=== PATIENT | male | born 1960 | race Caucasian/White ===

== ENCOUNTER 2018-12-25 18:43 | Inpatient (IN) | payer MEDICARE, OTHER ==
[2018-12-25 22:00] LABS: ADD MAN DIFF? NO
[2018-12-25] MEDS: NICARDipine HCL 30 MG CAPSULE PO (22:00)
[2018-12-25 22:05] LABS: WHITE BLOOD COUNT 5.1 10^3/ul (4.8-10.8)
[2018-12-25 22:05] LABS: BASOPHILS % 0.4 % (0.0-2.0); EOSINOPHILS # 0.5 10^3/ul (0.0-0.5); EOSINOPHILS % 9.3 % (0.0-7.0); HEMATOCRIT 37.3 % (42.0-52.0); HEMOGLOBIN 12.1 g/dl (14.0-18.0); LYMPHOCYTES # 0.8 10^3/ul (0.8-2.9); LYMPHOCYTES % 16.1 % (15.0-51.0); MEAN CORPUSCULAR HEMOGLOBIN 29.9 pg (29.0-33.0); MEAN CORPUSCULAR HGB CONC 32.4 g/dl (32.0-37.0); MEAN CORPUSCULAR VOLUME 92.1 fl (82.0-101.0); MONOCYTE # 0.4 10^3/ul (0.3-0.9); MONOCYTES % 8.4 % (0.0-11.0); NEUTROPHIL # 3.4 10^3/ul (1.6-7.5); NEUTROPHILS % 65.6 % (39.0-77.0); PLATELET COUNT 125 10^3/UL (140-415); POSITIVE DIFF @See below; RED BLOOD COUNT 4.05 10^6/ul (4.70-6.10)
[2018-12-25 22:26] LABS: ANION GAP 12 (5-13); BLOOD UREA NITROGEN 57 mg/dl (7-20); CALCIUM 8.8 mg/dl (8.4-10.2); CARBON DIOXIDE 23 mmol/L (21-31); CHLORIDE 102 mmol/L (97-110); CREATININE 8.68 mg/dl (0.61-1.24); Estimated GFR 6 mL/min (>60); GLUCOSE 110 mg/dl (70-220); SODIUM 137 mmol/L (135-144)
[2018-12-25 22:37] LABS: POTASSIUM 6.3 mmol/L (3.5-5.1)
[2018-12-25] MEDS: ALBUTEROL 0.5% (NEB) 2.5 MG/0.5 ML AMP INH (23:12)
[2018-12-25] MEDS: DEXTROSE 50% 50 ML SYRINGE IV ×2 (23:48)
[2018-12-25] MEDS: INSULIN REGULAR, HUMAN 100 UNIT/1 ML 3ML VIAL IVP (23:49)
[2018-12-26] MEDS: SODIUM POLYSTYRENE 15 GM KIT (POWDER + SORBITOL) PO (00:50)
[2018-12-26] MEDS: ATROPINE 1% 5 ML OPH BOTH EYES ×2 (08:12→20:09)
[2018-12-26] MEDS: MINOXIDIL 2.5 MG TAB PO ×2 (08:12→20:08)
[2018-12-26] MEDS: FAMOTIDINE 20 MG TAB PO ×2 (08:13→20:08)
[2018-12-26] MEDS: LOSARTAN 50 MG TAB PO (08:13)
[2018-12-26] MEDS: NIFEdipine (XL) 90 MG TAB PO (08:19)
[2018-12-26] MEDS: ISOSORBIDE MONONITRATE(SR)60 MG TAB PO (10:55)
[2018-12-26 11:18] LABS: ADD MAN DIFF? NO
[2018-12-26 11:30] LABS: BASOPHILS % 0.5 % (0.0-2.0); EOSINOPHILS # 0.4 10^3/ul (0.0-0.5); HEMATOCRIT 35.1 % (42.0-52.0); HEMOGLOBIN 11.2 g/dl (14.0-18.0); LYMPHOCYTES # 0.7 10^3/ul (0.8-2.9); LYMPHOCYTES % 16.3 % (15.0-51.0); MEAN CORPUSCULAR HEMOGLOBIN 29.5 pg (29.0-33.0); MEAN CORPUSCULAR HGB CONC 31.9 g/dl (32.0-37.0); MEAN CORPUSCULAR VOLUME 92.4 fl (82.0-101.0); MEAN PLATELET VOLUME 11.1 fl (7.4-10.4); MONOCYTE # 0.4 10^3/ul (0.3-0.9); MONOCYTES % 10.5 % (0.0-11.0); NEUTROPHIL # 2.6 10^3/ul (1.6-7.5); NEUTROPHILS % 63.7 % (39.0-77.0); PLATELET COUNT 110 10^3/UL (140-415); RED CELL DISTRIBUTION WIDTH 14.1 % (11.5-14.5)
[2018-12-26] MEDS ORDERED: VANCOMYCIN IV PER PHARMACY XX (11:30)
[2018-12-26 12:06] LABS: ANION GAP 12 (5-13); BLOOD UREA NITROGEN 67 mg/dl (7-20); CALCIUM 8.6 mg/dl (8.4-10.2); CARBON DIOXIDE 23 mmol/L (21-31); CHLORIDE 104 mmol/L (97-110); CREATININE 9.72 mg/dl (0.61-1.24); Estimated GFR 6 mL/min (>60); GLUCOSE 141 mg/dl (70-220); POTASSIUM 5.8 mmol/L (3.5-5.1); SODIUM 139 mmol/L (135-144)
[2018-12-26] MEDS: BARIUM SULF 2% 450 ML BTL (BERRY SMOOTHIE) PO (12:25)
[2018-12-26] MEDS: VANCOMYCIN HCL 1.5 GM in SOD CHLORIDE 0.9% 250 ML IVPB (12:25)
[2018-12-26] MEDS ORDERED: ALBUMIN HUMAN 25% 100 ML IV (12:30)
[2018-12-26] MEDS ORDERED: SODIUM CHLORIDE 0.9% 1L BAG IV (12:30)
[2018-12-26 15:19] LABS: HEPATITIS B SURFACE ANTIGEN NEGATIVE (NEGATIVE)
[2018-12-26] MEDS: HEPARIN 1000 UNITS/ML 10 ML INJ CATHETER (18:25)
[2018-12-26] MEDS: TOBRAMYCIN 0.3% 5 ML OPH LEFT EYE ×2 (18:26→23:00)
[2018-12-26] MEDS: PIPER-TAZO 2.25 GM (PMX) 50 ML IVPB ×2 (18:26→21:07)
[2018-12-26] MEDS: NIFEdipine (XL) 60 MG TAB PO (20:08)
[2018-12-26] MEDS ORDERED: NIFEdipine (XL) 90 MG TAB PO (21:00)
[2018-12-27] MEDS: PIPER-TAZO 2.25 GM (PMX) 50 ML IVPB ×3 (05:23→22:07)
[2018-12-27] MEDS: TOBRAMYCIN 0.3% 5 ML OPH LEFT EYE ×4 (05:24→23:45)
[2018-12-27 06:29] LABS: WHITE BLOOD COUNT 2.9 10^3/ul (4.8-10.8)
[2018-12-27 06:29] LABS: ABNORMAL IP MESSAGE 1; HEMATOCRIT 36.3 % (42.0-52.0); HEMOGLOBIN 11.9 g/dl (14.0-18.0); MEAN CORPUSCULAR HGB CONC 32.8 g/dl (32.0-37.0); MEAN CORPUSCULAR VOLUME 91.4 fl (82.0-101.0); MEAN PLATELET VOLUME 11.7 fl (7.4-10.4); PLATELET COUNT 88 10^3/UL (140-415); POSITIVE DIFF @See below; RED BLOOD COUNT 3.97 10^6/ul (4.70-6.10); RED CELL DISTRIBUTION WIDTH 13.5 % (11.5-14.5)
[2018-12-27 06:32] LABS: ADD MAN DIFF? YES
[2018-12-27 06:49] LABS: ALANINE AMINOTRANSFERASE 7 IU/L (13-69); ALBUMIN 4.2 g/dl (3.3-4.9); ALBUMIN/GLOBULIN RATIO 1.27; ALKALINE PHOSPHATASE 54 IU/L (42-121); ANION GAP 12 (5-13); ASPARTATE AMINO TRANSFERASE 10 IU/L (15-46); BLOOD UREA NITROGEN 48 mg/dl (7-20); CALCIUM 8.5 mg/dl (8.4-10.2); CARBON DIOXIDE 28 mmol/L (21-31); CHLORIDE 98 mmol/L (97-110); CREATININE 8.61 mg/dl (0.61-1.24); Estimated GFR 6 mL/min (>60); GLUCOSE 94 mg/dl (70-220); POTASSIUM 5.1 mmol/L (3.5-5.1); SODIUM 138 mmol/L (135-144); TOTAL PROTEIN 7.5 g/dl (6.1-8.1)
[2018-12-27 07:04] LABS: FREE T4 (FREE THYROXINE) 1.41 ng/dl (0.64-1.79)
[2018-12-27 07:08] LABS: CHOL/HDL RATIO 2.2 RATIO; CHOLESTEROL 140 mg/dl (100-200); HDL CHOLESTEROL 62 mg/dl (28-71); LDL CHOLESTEROL,CALCULATED 68 mg/dl; TRIGLYCERIDES 48 mg/dl (0-149)
[2018-12-27 07:08] LABS: MAGNESIUM 2.5 mg/dl (1.7-2.5)
[2018-12-27 07:44] LABS: ANISOCYTOSIS 1+ (0-0); BAND NEUTROPHILS % (M) 1 % (0-4); BASOPHILS % (M) 1 % (0-2); EOSINOPHILS % (M) 18 % (0-7); LYMPHOCYTES #M 0.6 10^3/ul (0.8-2.9); LYMPHOCYTES % (M) 22 % (15-51); MONOCYTE #M 0.1 10^3/ul (0.3-0.9); MONOCYTES % (M) 4 % (0-11); PLASMAC%(M) 1 % (0); PLATELET ESTIMATE DECREASED; PLATELET MORPHOLOGY COMMENT @See below; SEG NEUT #M 1.5 10^3/ul (1.6-7.5); SEGMENTED NEUTROPHILS (M) % 53 % (39-77); SMUDGE%M 42 % (0-0)
[2018-12-27] MEDS: ATROPINE 1% 5 ML OPH BOTH EYES ×2 (07:55→21:15)
[2018-12-27] MEDS: LOSARTAN 50 MG TAB PO (07:56)
[2018-12-27] MEDS: ISOSORBIDE MONONITRATE(SR)60 MG TAB PO (07:56)
[2018-12-27] MEDS: NIFEdipine (XL) 60 MG TAB PO ×2 (07:56→21:16)
[2018-12-27] MEDS: MINOXIDIL 2.5 MG TAB PO ×2 (07:58→21:19)
[2018-12-27 08:08] LABS: CARCINOEMBRYONIC ANTIGEN 2.5 ng/ml (0.0-5.0)
[2018-12-27 11:12] LABS: INR 1.05; PROTIME 13.8 Sec (11.9-14.9); PT RATIO 1.1
[2018-12-27 12:08] LABS: PLATELET COUNT 123 10^3/UL (140-415)
[2018-12-27 12:25] LABS: INR 1.05; PROTIME 13.8 Sec (11.9-14.9); PT RATIO 1.1; THROMBIN TIME 15.4 SEC (13.8-19.1)
[2018-12-27 12:26] LABS: PARTIAL THROMBOPLASTIN TIME 40.6 Sec (23.0-35.0)
[2018-12-27] MEDS: LIDOCAINE 1% (MDV) 20 ML INJ (14:12)
[2018-12-27] MEDS: LIDOCAINE 2% (SDV) 5 ML INJ (14:16)
[2018-12-27] MEDS: FAMOTIDINE 20 MG TAB PO (21:19)
[2018-12-27] MEDS: HEPARIN 1000 UNITS/ML 10 ML INJ CATHETER (22:02)
[2018-12-27] MEDS: ACETAMINOPHEN 325 MG TAB PO (23:42)
[2018-12-28] MEDS: PIPER-TAZO 2.25 GM (PMX) 50 ML IVPB ×3 (05:01→21:22)
[2018-12-28] MEDS: TOBRAMYCIN 0.3% 5 ML OPH LEFT EYE ×3 (05:02→17:30)
[2018-12-28 06:44] LABS: VANCOMYCIN,RANDOM 10.5 ug/ml
[2018-12-28 08:11] LABS: HIV 1&2 ANTIBODY NEGATIVE (NEGATIVE)
[2018-12-28] MEDS: NIFEdipine (XL) 60 MG TAB PO ×2 (08:33→20:52)
[2018-12-28] MEDS: MINOXIDIL 2.5 MG TAB PO ×2 (08:34→20:50)
[2018-12-28] MEDS: LOSARTAN 50 MG TAB PO (08:34)
[2018-12-28] MEDS: ISOSORBIDE MONONITRATE(SR)60 MG TAB PO (08:34)
[2018-12-28] MEDS: ATROPINE 1% 5 ML OPH BOTH EYES ×2 (08:35→20:53)
[2018-12-28] MEDS: ACETAMINOPHEN 325 MG TAB PO (10:26)
[2018-12-28] MEDS ORDERED: GLUCAGON 1 MG INJ IM (10:30)
[2018-12-28] MEDS ORDERED: GLUCOSE GEL 15 GRAM TUBE PO ×2 (10:30)
[2018-12-28] MEDS ORDERED: DEXTROSE 50% 50 ML SYRINGE IV ×2 (10:30)
[2018-12-28] MEDS ORDERED: GLUCOSE GEL 15 GRAM TUBE BUCCAL (10:30)
[2018-12-28] MEDS: INSULIN ASPART [NOVOLOG] 3 ML PEN SC ×6 (11:26→21:00)
[2018-12-28 12:04] LABS: ADD MAN DIFF? NO
[2018-12-28 12:13] LABS: ABNORMAL IP MESSAGE 1; BASOPHILS % 0.2 % (0.0-2.0); EOSINOPHILS # 0.6 10^3/ul (0.0-0.5); HEMATOCRIT 36.1 % (42.0-52.0); HEMOGLOBIN 11.4 g/dl (14.0-18.0); LYMPHOCYTES # 0.6 10^3/ul (0.8-2.9); LYMPHOCYTES % 14.7 % (15.0-51.0); MEAN CORPUSCULAR HEMOGLOBIN 29.5 pg (29.0-33.0); MEAN CORPUSCULAR HGB CONC 31.6 g/dl (32.0-37.0); MEAN CORPUSCULAR VOLUME 93.3 fl (82.0-101.0); MEAN PLATELET VOLUME 10.2 fl (7.4-10.4); MONOCYTE # 0.4 10^3/ul (0.3-0.9); MONOCYTES % 9.7 % (0.0-11.0); NEUTROPHIL # 2.4 10^3/ul (1.6-7.5); NEUTROPHILS % 59.2 % (39.0-77.0); PLATELET COUNT 133 10^3/UL (140-415); POSITIVE DIFF @See below; RED BLOOD COUNT 3.87 10^6/ul (4.70-6.10); RED CELL DISTRIBUTION WIDTH 13.5 % (11.5-14.5)
[2018-12-28 12:22] LABS: HEMOGLOBIN A1C 5.6 % (0-5.9)
[2018-12-28 12:34] LABS: ANION GAP 12 (5-13); BLOOD UREA NITROGEN 36 mg/dl (7-20); CALCIUM 8.4 mg/dl (8.4-10.2); CARBON DIOXIDE 26 mmol/L (21-31); CHLORIDE 101 mmol/L (97-110); CREATININE 7.05 mg/dl (0.61-1.24); Estimated GFR 8 mL/min (>60); GLUCOSE 176 mg/dl (70-220); POTASSIUM 4.8 mmol/L (3.5-5.1); SODIUM 139 mmol/L (135-144)
[2018-12-28] MEDS: VANCOMYCIN 1 GM 250 ML IVPB (14:51)
[2018-12-28] MEDS: FAMOTIDINE 20 MG TAB PO (20:51)
[2018-12-29] MEDS: TOBRAMYCIN 0.3% 5 ML OPH LEFT EYE ×4 (00:09→18:09)
[2018-12-29] MEDS: INSULIN ASPART [NOVOLOG] 3 ML PEN SC ×6 (01:00→21:00)
[2018-12-29] MEDS: ACCU-CHEK XX (02:00)
[2018-12-29] MEDS: PIPER-TAZO 2.25 GM (PMX) 50 ML IVPB ×3 (05:35→21:37)
[2018-12-29] MEDS: ATROPINE 1% 5 ML OPH BOTH EYES ×2 (08:12→21:38)
[2018-12-29] MEDS: NIFEdipine (XL) 60 MG TAB PO ×2 (10:21→20:38)
[2018-12-29] MEDS: LOSARTAN 50 MG TAB PO (10:21)
[2018-12-29] MEDS: MINOXIDIL 2.5 MG TAB PO ×2 (10:21→20:38)
[2018-12-29] MEDS: ISOSORBIDE MONONITRATE(SR)60 MG TAB PO (10:21)
[2018-12-29 10:58] LABS: NIL 0.09 IU/mL; QUANTIFERON(R)-TB GOLD NEGATIVE (NEGATIVE)
[2018-12-29] MEDS: HEPARIN 1000 UNITS/ML 10 ML INJ CATHETER (18:06)
[2018-12-29] MEDS: FAMOTIDINE 20 MG TAB PO (20:38)
[2018-12-30] MEDS: ACCU-CHEK XX (02:00)
[2018-12-30 05:55] LABS: ADD MAN DIFF? NO
[2018-12-30 06:04] LABS: BASOPHILS % 0.7 % (0.0-2.0); EOSINOPHILS # 0.5 10^3/ul (0.0-0.5); EOSINOPHILS % 17.6 % (0.0-7.0); HEMATOCRIT 36.1 % (42.0-52.0); HEMOGLOBIN 11.7 g/dl (14.0-18.0); LYMPHOCYTES # 0.7 10^3/ul (0.8-2.9); LYMPHOCYTES % 22.5 % (15.0-51.0); MEAN CORPUSCULAR HEMOGLOBIN 29.6 pg (29.0-33.0); MEAN CORPUSCULAR HGB CONC 32.4 g/dl (32.0-37.0); MEAN CORPUSCULAR VOLUME 91.4 fl (82.0-101.0); MEAN PLATELET VOLUME 10.1 fl (7.4-10.4); MONOCYTE # 0.3 10^3/ul (0.3-0.9); MONOCYTES % 9.2 % (0.0-11.0); NEUTROPHIL # 1.5 10^3/ul (1.6-7.5); NEUTROPHILS % 49.7 % (39.0-77.0); PLATELET COUNT 119 10^3/UL (140-415); RED BLOOD COUNT 3.95 10^6/ul (4.70-6.10); RED CELL DISTRIBUTION WIDTH 13.2 % (11.5-14.5)
[2018-12-30 06:04] LABS: WHITE BLOOD COUNT 3.1 10^3/ul (4.8-10.8)
[2018-12-30] MEDS: PIPER-TAZO 2.25 GM (PMX) 50 ML IVPB ×3 (06:26→21:53)
[2018-12-30] MEDS: TOBRAMYCIN 0.3% 5 ML OPH LEFT EYE ×4 (06:26→17:41)
[2018-12-30 06:32] LABS: ANION GAP 15 (5-13); BLOOD UREA NITROGEN 42 mg/dl (7-20); CALCIUM 8.1 mg/dl (8.4-10.2); CARBON DIOXIDE 23 mmol/L (21-31); CHLORIDE 100 mmol/L (97-110); CREATININE 7.29 mg/dl (0.61-1.24); Estimated GFR 8 mL/min (>60); GLUCOSE 88 mg/dl (70-220); POTASSIUM 5.1 mmol/L (3.5-5.1); SODIUM 138 mmol/L (135-144)
[2018-12-30] MEDS: INSULIN ASPART [NOVOLOG] 3 ML PEN SC ×4 (07:48→20:17)
[2018-12-30] MEDS: ISOSORBIDE MONONITRATE(SR)60 MG TAB PO (08:16)
[2018-12-30] MEDS: ATROPINE 1% 5 ML OPH BOTH EYES ×2 (08:16→20:13)
[2018-12-30] MEDS: MINOXIDIL 2.5 MG TAB PO ×2 (08:16→20:12)
[2018-12-30] MEDS: LOSARTAN 50 MG TAB PO (08:16)
[2018-12-30] MEDS: NIFEdipine (XL) 60 MG TAB PO ×2 (08:16→20:12)
[2018-12-30] MEDS: ZOLPIDEM 5 MG TAB PO (20:11)
[2018-12-30] MEDS: FAMOTIDINE 20 MG TAB PO (20:12)
[2018-12-31] MEDS: ACCU-CHEK XX (02:00)
[2018-12-31] MEDS: INSULIN ASPART [NOVOLOG] 3 ML PEN SC ×4 (07:42→21:00)
[2018-12-31] MEDS: NIFEdipine (XL) 60 MG TAB PO ×2 (08:22→21:01)
[2018-12-31] MEDS: LOSARTAN 50 MG TAB PO (08:23)
[2018-12-31] MEDS: ISOSORBIDE MONONITRATE(SR)60 MG TAB PO (08:23)
[2018-12-31] MEDS: MINOXIDIL 2.5 MG TAB PO ×2 (08:23→21:01)
[2018-12-31] MEDS: ATROPINE 1% 5 ML OPH BOTH EYES ×2 (08:25→21:03)
[2018-12-31] MEDS: ZOLPIDEM 5 MG TAB PO (21:01)
[2018-12-31] MEDS: FAMOTIDINE 20 MG TAB PO (21:02)
[2019-01-01] MEDS: ACCU-CHEK XX (00:31)
[2019-01-01] MEDS: VANCOMYCIN HCL 250 MG/5ML POSYG PO ×5 (00:31→23:35)
[2019-01-01] MEDS: INSULIN ASPART [NOVOLOG] 3 ML PEN SC ×4 (07:52→21:32)
[2019-01-01] MEDS: ATROPINE 1% 5 ML OPH BOTH EYES ×2 (10:36→21:17)
[2019-01-01] MEDS: hydrOXYzine HCL 25 MG TAB PO (10:36)
[2019-01-01] MEDS: HEPARIN 1000 UNITS/ML 10 ML INJ CATHETER (12:20)
[2019-01-01] MEDS: ISOSORBIDE MONONITRATE(SR)60 MG TAB PO (14:17)
[2019-01-01] MEDS: LOSARTAN 50 MG TAB PO (14:17)
[2019-01-01] MEDS: NIFEdipine (XL) 60 MG TAB PO ×2 (14:18→21:20)
[2019-01-01] MEDS: MINOXIDIL 2.5 MG TAB PO ×2 (14:18→21:20)
[2019-01-01] MEDS: LABETALOL 200 MG TAB PO (21:00)
[2019-01-01] MEDS: FAMOTIDINE 20 MG TAB PO (21:17)
[2019-01-02] MEDS: ACCU-CHEK XX (02:14)
[2019-01-02] MEDS: VANCOMYCIN HCL 250 MG/5ML POSYG PO ×3 (05:44→17:22)
[2019-01-02 05:52] LABS: ADD MAN DIFF? NO
[2019-01-02 05:56] LABS: WHITE BLOOD COUNT 2.9 10^3/ul (4.8-10.8)
[2019-01-02 05:56] LABS: ABNORMAL IP MESSAGE 1; BASOPHILS % 0.3 % (0.0-2.0); EOSINOPHILS # 0.5 10^3/ul (0.0-0.5); EOSINOPHILS % 17.5 % (0.0-7.0); HEMATOCRIT 37.8 % (42.0-52.0); HEMOGLOBIN 12.7 g/dl (14.0-18.0); LYMPHOCYTES # 0.4 10^3/ul (0.8-2.9); LYMPHOCYTES % 12.7 % (15.0-51.0); MEAN CORPUSCULAR HEMOGLOBIN 29.7 pg (29.0-33.0); MEAN CORPUSCULAR HGB CONC 33.6 g/dl (32.0-37.0); MEAN CORPUSCULAR VOLUME 88.5 fl (82.0-101.0); MEAN PLATELET VOLUME 11.2 fl (7.4-10.4); MONOCYTE # 0.3 10^3/ul (0.3-0.9); MONOCYTES % 10.7 % (0.0-11.0); NEUTROPHIL # 1.7 10^3/ul (1.6-7.5); NEUTROPHILS % 58.5 % (39.0-77.0); PLATELET COUNT 117 10^3/UL (140-415); POSITIVE DIFF @See below; RED BLOOD COUNT 4.27 10^6/ul (4.70-6.10); RED CELL DISTRIBUTION WIDTH 13.1 % (11.5-14.5)
[2019-01-02 06:23] LABS: ANION GAP 18 (5-13); BLOOD UREA NITROGEN 58 mg/dl (7-20); CALCIUM 7.7 mg/dl (8.4-10.2); CARBON DIOXIDE 24 mmol/L (21-31); CHLORIDE 93 mmol/L (97-110); CREATININE 8.86 mg/dl (0.61-1.24); Estimated GFR 6 mL/min (>60); GLUCOSE 91 mg/dl (70-220); POTASSIUM 5.4 mmol/L (3.5-5.1); SODIUM 135 mmol/L (135-144)
[2019-01-02] MEDS: INSULIN ASPART [NOVOLOG] 3 ML PEN SC ×4 (08:00→20:24)
[2019-01-02] MEDS: MINOXIDIL 2.5 MG TAB PO ×2 (08:52→20:13)
[2019-01-02] MEDS: ISOSORBIDE MONONITRATE(SR)60 MG TAB PO (08:52)
[2019-01-02] MEDS: NIFEdipine (XL) 60 MG TAB PO ×2 (08:52→20:13)
[2019-01-02] MEDS: LOSARTAN 50 MG TAB PO (08:53)
[2019-01-02] MEDS: ATROPINE 1% 5 ML OPH BOTH EYES ×2 (08:53→20:14)
[2019-01-02] MEDS: LABETALOL 200 MG TAB PO ×3 (08:53→23:07)
[2019-01-02] MEDS: FAMOTIDINE 20 MG TAB PO (20:13)
[2019-01-02] MEDS: NA POLYST SULFON 15 GM/60 ML BTL PO (20:35)
[2019-01-02] MEDS ORDERED: SODIUM POLYSTYRENE 15 GM KIT (POWDER + SORBITOL) PO (21:00)
[2019-01-03] MEDS: ACCU-CHEK XX (01:59)
[2019-01-03 06:24] LABS: ADD MAN DIFF? NO
[2019-01-03 06:25] LABS: BASOPHILS % 0.3 % (0.0-2.0); EOSINOPHILS # 0.5 10^3/ul (0.0-0.5); EOSINOPHILS % 13.4 % (0.0-7.0); HEMATOCRIT 33.1 % (42.0-52.0); LYMPHOCYTES # 0.9 10^3/ul (0.8-2.9); LYMPHOCYTES % 23.7 % (15.0-51.0); MEAN CORPUSCULAR HGB CONC 33.2 g/dl (32.0-37.0); MEAN CORPUSCULAR VOLUME 87.3 fl (82.0-101.0); MEAN PLATELET VOLUME 10.6 fl (7.4-10.4); MONOCYTE # 0.4 10^3/ul (0.3-0.9); MONOCYTES % 10.4 % (0.0-11.0); NEUTROPHIL # 2.1 10^3/ul (1.6-7.5); NEUTROPHILS % 52.2 % (39.0-77.0); PLATELET COUNT 149 10^3/UL (140-415); RED BLOOD COUNT 3.79 10^6/ul (4.70-6.10); RED CELL DISTRIBUTION WIDTH 13.4 % (11.5-14.5)
[2019-01-03 07:14] LABS: ANION GAP 19 (5-13); BLOOD UREA NITROGEN 85 mg/dl (7-20); CALCIUM 6.8 mg/dl (8.4-10.2); CARBON DIOXIDE 20 mmol/L (21-31); CHLORIDE 95 mmol/L (97-110); CREATININE 11.12 mg/dl (0.61-1.24); Estimated GFR 5 mL/min (>60); GLUCOSE 99 mg/dl (70-220); SODIUM 134 mmol/L (135-144)
[2019-01-03] MEDS: INSULIN ASPART [NOVOLOG] 3 ML PEN SC ×4 (08:00→20:08)
[2019-01-03] MEDS: HEPARIN 1000 UNITS/ML 10 ML INJ CATHETER (11:27)
[2019-01-03] MEDS: MINOXIDIL 2.5 MG TAB PO ×2 (12:30→20:06)
[2019-01-03] MEDS: ATROPINE 1% 5 ML OPH BOTH EYES ×2 (12:30→20:06)
[2019-01-03] MEDS: ISOSORBIDE MONONITRATE(SR)60 MG TAB PO (12:30)
[2019-01-03] MEDS: LOSARTAN 50 MG TAB PO (12:31)
[2019-01-03] MEDS: NIFEdipine (XL) 60 MG TAB PO ×2 (12:31→20:07)
[2019-01-03] MEDS: LABETALOL 200 MG TAB PO ×2 (12:32→20:07)
[2019-01-03 17:56] LABS: ANION GAP 15 (5-13); BLOOD UREA NITROGEN 41 mg/dl (7-20); CALCIUM 8.5 mg/dl (8.4-10.2); CARBON DIOXIDE 27 mmol/L (21-31); CHLORIDE 94 mmol/L (97-110); CREATININE 6.72 mg/dl (0.61-1.24); Estimated GFR 9 mL/min (>60); GLUCOSE 263 mg/dl (70-220); POTASSIUM 4.3 mmol/L (3.5-5.1); SODIUM 136 mmol/L (135-144)
[2019-01-03] MEDS: FAMOTIDINE 20 MG TAB PO (20:06)
[2019-01-04] MEDS: ACCU-CHEK XX (02:00)
[2019-01-04] MEDS: INSULIN ASPART [NOVOLOG] 3 ML PEN SC ×2 (08:00→12:01)
[2019-01-04] MEDS: ATROPINE 1% 5 ML OPH BOTH EYES (08:41)
[2019-01-04] MEDS: LABETALOL 200 MG TAB PO (08:42)
[2019-01-04] MEDS: MINOXIDIL 2.5 MG TAB PO (08:43)
[2019-01-04] MEDS: LOSARTAN 50 MG TAB PO (08:43)
[2019-01-04] MEDS: ISOSORBIDE MONONITRATE(SR)60 MG TAB PO (08:43)
[2019-01-04] MEDS: NIFEdipine (XL) 60 MG TAB PO (08:43)
== END 2019-01-04 15:05 | disposition home or self-care (01) | DRG 196 ==
LOC: 6WM 12-26 00:15 → E/R 18:43 → 6WM 12-27 18:07
PROC: 5A1D70Z Performance of Urinary Filtration, Intermittent, Less than 6 Hours Per Day (ICD-10-PCS; 2018-12-26)
PROC: 0BDF4ZX Extraction of Right Lower Lung Lobe, Percutaneous Endoscopic Approach, Diagnostic (ICD-10-PCS; principal; 2018-12-27)
DX: J84.89 Other specified interstitial pulmonary diseases (principal); N18.6 End stage renal disease; I12.0 Hypertensive chronic kidney disease with stage 5 chronic kidney disease or end stage renal disease; E11.22 Type 2 diabetes mellitus with diabetic chronic kidney disease; Z99.2 Dependence on renal dialysis; I16.0 Hypertensive urgency; E87.70 Fluid overload, unspecified; E78.5 Hyperlipidemia, unspecified; E87.5 Hyperkalemia; E11.319 Type 2 diabetes mellitus with unspecified diabetic retinopathy without macular edema; E11.65 Type 2 diabetes mellitus with hyperglycemia; I25.10 Atherosclerotic heart disease of native coronary artery without angina pectoris; I25.2 Old myocardial infarction; H54.8 Legal blindness, as defined in USA; Z95.1 Presence of aortocoronary bypass graft
CPT/HCPCS: 70480; 71045; 71250; 74176; 76775; 77012; 80048; 80053; 80061; 80202; 82378; 82962; 83036; 83735; 84439; 84443; 85025; 85049; 85610; 85670; 85730; 86480; 86635; 86703; 87040; 87070; 87075; 87102; 87116; 87340; 87400; 88307; 88313; 90935; 93005; 93306; 94664; 96374; 96375; 99291-25

== ENCOUNTER 2019-01-29 04:29 | Inpatient (IN) | payer MEDICARE, OTHER ==
[2019-01-29 05:05] LABS: ADD MAN DIFF? NO
[2019-01-29 05:08] LABS: WHITE BLOOD COUNT 4.7 10^3/ul (4.8-10.8)
[2019-01-29 05:08] LABS: ABNORMAL IP MESSAGE 1; BASOPHILS % 0.2 % (0.0-2.0); EOSINOPHILS # 0.5 10^3/ul (0.0-0.5); EOSINOPHILS % 9.7 % (0.0-7.0); HEMATOCRIT 37.1 % (42.0-52.0); HEMOGLOBIN 11.7 g/dl (14.0-18.0); LYMPHOCYTES # 0.7 10^3/ul (0.8-2.9); LYMPHOCYTES % 14.2 % (15.0-51.0); MEAN CORPUSCULAR HEMOGLOBIN 29.8 pg (29.0-33.0); MEAN CORPUSCULAR HGB CONC 31.5 g/dl (32.0-37.0); MEAN CORPUSCULAR VOLUME 94.4 fl (82.0-101.0); MEAN PLATELET VOLUME 12.3 fl (7.4-10.4); MONOCYTE # 0.2 10^3/ul (0.3-0.9); NEUTROPHIL # 3.4 10^3/ul (1.6-7.5); NEUTROPHILS % 71.7 % (39.0-77.0); PLATELET COUNT 82 10^3/UL (140-415); POSITIVE DIFF @See below; RED BLOOD COUNT 3.93 10^6/ul (4.70-6.10); RED CELL DISTRIBUTION WIDTH 14.4 % (11.5-14.5)
[2019-01-29 05:31] LABS: ALANINE AMINOTRANSFERASE 42 IU/L (13-69); ALBUMIN 4.8 g/dl (3.3-4.9); ALBUMIN/GLOBULIN RATIO 1.37; ALKALINE PHOSPHATASE 73 IU/L (42-121); ANION GAP 20 (5-13); ASPARTATE AMINO TRANSFERASE 45 IU/L (15-46); BLOOD UREA NITROGEN 105 mg/dl (7-20); CALCIUM 9.1 mg/dl (8.4-10.2); CARBON DIOXIDE 19 mmol/L (21-31); CHLORIDE 107 mmol/L (97-110); CREATININE 13.35 mg/dl (0.61-1.24); Estimated GFR 4 mL/min (>60); GLUCOSE 161 mg/dl (70-220); LIPASE 89 U/L (23-300); SODIUM 146 mmol/L (135-144); TOTAL PROTEIN 8.3 g/dl (6.1-8.1)
[2019-01-29 05:42] LABS: TROPONIN-I 0.027 ng/ml (0.000-0.120)
[2019-01-29 06:13] LABS: POTASSIUM 8.9 mmol/L (3.5-5.1)
[2019-01-29] MEDS: CA CHLORIDE 10% 10 ML SYRINGE IV (06:24)
[2019-01-29] MEDS: INSULIN REGULAR, HUMAN 100 UNIT/1 ML 3ML VIAL IVP (06:25)
[2019-01-29] MEDS: NA BICARBONATE 8.4% 50 ML SYG IV (06:28)
[2019-01-29] MEDS: ONDANSETRON 4 MG INJ IV (06:28)
[2019-01-29] MEDS: morphine 4 MG/ML VIAL IV (06:29)
[2019-01-29] MEDS: DEXTROSE 50% 50 ML SYRINGE IV (06:40)
[2019-01-29] MEDS: ALBUTEROL 0.5% (NEB) 2.5 MG/0.5 ML AMP INH (06:53)
[2019-01-29] MEDS ORDERED: ONDANSETRON 4 MG INJ IV (07:00)
[2019-01-29] MEDS ORDERED: ACETAMINOPHEN 325 MG TAB PO (07:00)
[2019-01-29] MEDS ORDERED: MANNITOL 25% 50 ML IV (07:30)
[2019-01-29] MEDS ORDERED: ALBUMIN HUMAN 25% 100 ML IV (07:30)
[2019-01-29] MEDS ORDERED: SODIUM CHLORIDE 0.9% 1L BAG IV (07:30)
[2019-01-29] MEDS: SODIUM POLYSTYRENE 15 GM KIT (POWDER + SORBITOL) PO (07:34)
[2019-01-29 10:13] LABS: HEPATITIS B SURFACE ANTIGEN NEGATIVE (NEGATIVE)
[2019-01-29 10:32] LABS: HEPATITIS B SURFACE ANTIBODY POSITIVE (NEGATIVE)
[2019-01-29] MEDS ORDERED: GLUCOSE GEL 15 GRAM TUBE BUCCAL (11:00)
[2019-01-29] MEDS ORDERED: DEXTROSE 50% 50 ML SYRINGE IV ×2 (11:00)
[2019-01-29] MEDS ORDERED: GLUCAGON 1 MG INJ IM (11:00)
[2019-01-29] MEDS ORDERED: GLUCOSE GEL 15 GRAM TUBE PO ×2 (11:00)
[2019-01-29] MEDS: INSULIN ASPART [NOVOLOG] 3 ML PEN SC ×3 (11:30→20:27)
[2019-01-29] MEDS: HEPARIN 1000 UNITS/ML 10 ML INJ CATHETER (11:51)
[2019-01-29] MEDS ORDERED: NON-FORMULARY/PATIENT OWN MED (Atropine Sulfate/0.9 %Sod Chlr (Atropine 0.01%-Ns Eye Drops XX (12:30)
[2019-01-29] MEDS: NIFEdipine (XL) 60 MG TAB PO ×2 (12:46→20:20)
[2019-01-29] MEDS: TAMSULOSIN (SR) 0.4 MG CAP PO (12:46)
[2019-01-29] MEDS: MINOXIDIL 2.5 MG TAB PO ×2 (13:08→23:10)
[2019-01-29] MEDS: FAMOTIDINE 20 MG TAB PO (13:08)
[2019-01-29 14:10] LABS: POTASSIUM 4.6 mmol/L (3.5-5.1)
[2019-01-29] MEDS: NITROGLYCERIN 2% 1 GM OINT PKT TD (15:30)
[2019-01-29] MEDS: NITROGLYCERIN 50 MG/D5W (PMX) 250 ML IV (15:50)
[2019-01-29] MEDS: SEVELAMER CARBONATE 0.8 GM PKT PO (17:38)
[2019-01-29] MEDS ORDERED: MINOXIDIL 2.5 MG TAB PO (21:00)
[2019-01-30] MEDS: METOCLOPRAMIDE 10 MG INJ IV ×4 (00:23→17:51)
[2019-01-30] MEDS: NITROGLYCERIN 50 MG/D5W (PMX) 250 ML IV (00:24)
[2019-01-30] MEDS: ACCU-CHEK XX (02:00)
[2019-01-30 05:27] LABS: ADD MAN DIFF? NO
[2019-01-30 05:29] LABS: WHITE BLOOD COUNT 3.1 10^3/ul (4.8-10.8)
[2019-01-30 05:29] LABS: ABNORMAL IP MESSAGE 1; BASOPHILS % 0.3 % (0.0-2.0); EOSINOPHILS # 0.6 10^3/ul (0.0-0.5); EOSINOPHILS % 20.1 % (0.0-7.0); HEMATOCRIT 35.6 % (42.0-52.0); HEMOGLOBIN 11.3 g/dl (14.0-18.0); LYMPHOCYTES # 0.6 10^3/ul (0.8-2.9); LYMPHOCYTES % 20.1 % (15.0-51.0); MEAN CORPUSCULAR HEMOGLOBIN 29.7 pg (29.0-33.0); MEAN CORPUSCULAR HGB CONC 31.7 g/dl (32.0-37.0); MEAN CORPUSCULAR VOLUME 93.4 fl (82.0-101.0); MEAN PLATELET VOLUME 11.3 fl (7.4-10.4); MONOCYTE # 0.3 10^3/ul (0.3-0.9); MONOCYTES % 8.7 % (0.0-11.0); NEUTROPHIL # 1.6 10^3/ul (1.6-7.5); NEUTROPHILS % 50.8 % (39.0-77.0); PLATELET COUNT 88 10^3/UL (140-415); POSITIVE DIFF @See below; RED BLOOD COUNT 3.81 10^6/ul (4.70-6.10); RED CELL DISTRIBUTION WIDTH 14.2 % (11.5-14.5)
[2019-01-30 06:10] LABS: ANION GAP 15 (5-13); BLOOD UREA NITROGEN 56 mg/dl (7-20); CALCIUM 8.3 mg/dl (8.4-10.2); CARBON DIOXIDE 29 mmol/L (21-31); CHLORIDE 97 mmol/L (97-110); CREATININE 9.46 mg/dl (0.61-1.24); Estimated GFR 6 mL/min (>60); GLUCOSE 115 mg/dl (70-220); POTASSIUM 5.3 mmol/L (3.5-5.1); SODIUM 141 mmol/L (135-144)
[2019-01-30] MEDS: INSULIN ASPART [NOVOLOG] 3 ML PEN SC ×4 (07:35→21:00)
[2019-01-30] MEDS: SEVELAMER CARBONATE 0.8 GM PKT PO ×3 (07:42→17:51)
[2019-01-30] MEDS: TAMSULOSIN (SR) 0.4 MG CAP PO (07:43)
[2019-01-30] MEDS: MINOXIDIL 2.5 MG TAB PO ×2 (07:43→21:20)
[2019-01-30] MEDS: NIFEdipine (XL) 60 MG TAB PO ×2 (07:44→21:21)
[2019-01-30] MEDS: FAMOTIDINE 20 MG TAB PO (07:44)
[2019-01-30] MEDS: ARTIFICIAL TEARS 15 ML OPH BOTH EYES (21:15)
[2019-01-31] MEDS: ACCU-CHEK XX (02:17)
[2019-01-31] MEDS: HEPARIN 1000 UNITS/ML 10 ML INJ CATHETER ×2 (02:25→14:53)
[2019-01-31 06:02] LABS: ALANINE AMINOTRANSFERASE 31 IU/L (13-69); ALBUMIN 4.4 g/dl (3.3-4.9); ALBUMIN/GLOBULIN RATIO 1.33; ALKALINE PHOSPHATASE 65 IU/L (42-121); ANION GAP 12 (5-13); ASPARTATE AMINO TRANSFERASE 31 IU/L (15-46); BILIRUBIN,INDIRECT 0.2 mg/dl (0-1.1); BILIRUBIN,TOTAL 0.2 mg/dl (0.2-1.3); BLOOD UREA NITROGEN 31 mg/dl (7-20); CALCIUM 8.3 mg/dl (8.4-10.2); CARBON DIOXIDE 30 mmol/L (21-31); CHLORIDE 96 mmol/L (97-110); CREATININE 6.28 mg/dl (0.61-1.24); Estimated GFR 9 mL/min (>60); GLUCOSE 103 mg/dl (70-220); POTASSIUM 4.8 mmol/L (3.5-5.1); SODIUM 138 mmol/L (135-144); TOTAL PROTEIN 7.7 g/dl (6.1-8.1)
[2019-01-31] MEDS: METOCLOPRAMIDE 10 MG INJ IV ×4 (06:02→17:04)
[2019-01-31] MEDS: INSULIN ASPART [NOVOLOG] 3 ML PEN SC ×4 (07:35→20:51)
[2019-01-31] MEDS: NIFEdipine (XL) 60 MG TAB PO ×2 (08:37→20:44)
[2019-01-31] MEDS: SEVELAMER CARBONATE 0.8 GM PKT PO ×3 (08:37→17:04)
[2019-01-31] MEDS: FAMOTIDINE 20 MG TAB PO (08:37)
[2019-01-31] MEDS: TAMSULOSIN (SR) 0.4 MG CAP PO (08:38)
[2019-01-31] MEDS: MINOXIDIL 2.5 MG TAB PO ×2 (08:38→20:45)
[2019-01-31] MEDS: ARTIFICIAL TEARS 15 ML OPH BOTH EYES ×4 (08:39→20:45)
[2019-01-31] MEDS: NITROGLYCERIN 50 MG/D5W (PMX) 250 ML IV (09:00)
[2019-01-31] MEDS: PIPER-TAZO 2.25 GM (PMX) 50 ML IVPB ×2 (17:14→21:48)
[2019-02-01] MEDS: METOCLOPRAMIDE 10 MG INJ IV ×5 (00:22→23:33)
[2019-02-01] MEDS: ACCU-CHEK XX (02:00)
[2019-02-01] MEDS: PIPER-TAZO 2.25 GM (PMX) 50 ML IVPB ×3 (05:38→21:13)
[2019-02-01] MEDS: INSULIN ASPART [NOVOLOG] 3 ML PEN SC ×4 (07:31→21:00)
[2019-02-01] MEDS: SEVELAMER CARBONATE 0.8 GM PKT PO ×3 (07:31→17:18)
[2019-02-01] MEDS: MINOXIDIL 2.5 MG TAB PO ×2 (08:11→21:10)
[2019-02-01] MEDS: FAMOTIDINE 20 MG TAB PO (08:11)
[2019-02-01] MEDS: TAMSULOSIN (SR) 0.4 MG CAP PO (08:11)
[2019-02-01] MEDS: NIFEdipine (XL) 60 MG TAB PO ×2 (08:12→21:11)
[2019-02-01] MEDS: ARTIFICIAL TEARS 15 ML OPH BOTH EYES ×4 (08:14→21:12)
[2019-02-01] MEDS: NITROGLYCERIN 0.2 MG/HR PATCH TRANSDERM (13:24)
[2019-02-01] MEDS: ONDANSETRON 4 MG INJ IV (21:11)
[2019-02-01] MEDS: NITROGLYCERIN 50 MG/D5W (PMX) 250 ML IV (23:33)
[2019-02-02] MEDS: ACCU-CHEK XX (01:15)
[2019-02-02 05:19] LABS: ADD MAN DIFF? NO
[2019-02-02 05:29] LABS: WHITE BLOOD COUNT 4.3 10^3/ul (4.8-10.8)
[2019-02-02 05:29] LABS: ABNORMAL IP MESSAGE 1; BASOPHILS % 0.5 % (0.0-2.0); EOSINOPHILS # 0.8 10^3/ul (0.0-0.5); EOSINOPHILS % 19.4 % (0.0-7.0); HEMOGLOBIN 11.5 g/dl (14.0-18.0); LYMPHOCYTES # 0.9 10^3/ul (0.8-2.9); LYMPHOCYTES % 19.8 % (15.0-51.0); MEAN CORPUSCULAR HEMOGLOBIN 29.9 pg (29.0-33.0); MEAN CORPUSCULAR HGB CONC 32.9 g/dl (32.0-37.0); MEAN CORPUSCULAR VOLUME 90.9 fl (82.0-101.0); MEAN PLATELET VOLUME 10.9 fl (7.4-10.4); MONOCYTE # 0.4 10^3/ul (0.3-0.9); MONOCYTES % 9.2 % (0.0-11.0); NEUTROPHIL # 2.2 10^3/ul (1.6-7.5); NEUTROPHILS % 50.9 % (39.0-77.0); PLATELET COUNT 90 10^3/UL (140-415); POSITIVE DIFF @See below; RED BLOOD COUNT 3.85 10^6/ul (4.70-6.10); RED CELL DISTRIBUTION WIDTH 12.9 % (11.5-14.5)
[2019-02-02] MEDS: METOCLOPRAMIDE 10 MG INJ IV ×3 (05:44→18:54)
[2019-02-02] MEDS: PIPER-TAZO 2.25 GM (PMX) 50 ML IVPB ×3 (05:44→21:43)
[2019-02-02 06:12] LABS: ANION GAP 18 (5-13); BLOOD UREA NITROGEN 71 mg/dl (7-20); CALCIUM 7.2 mg/dl (8.4-10.2); CARBON DIOXIDE 23 mmol/L (21-31); CHLORIDE 94 mmol/L (97-110); CREATININE 9.17 mg/dl (0.61-1.24); Estimated GFR 6 mL/min (>60); GLUCOSE 114 mg/dl (70-220); POTASSIUM 5.4 mmol/L (3.5-5.1); SODIUM 135 mmol/L (135-144)
[2019-02-02] MEDS: INSULIN ASPART [NOVOLOG] 3 ML PEN SC ×4 (07:35→20:47)
[2019-02-02] MEDS: SEVELAMER CARBONATE 0.8 GM PKT PO ×3 (08:06→18:54)
[2019-02-02] MEDS: NITROGLYCERIN 50 MG/D5W (PMX) 250 ML IV ×3 (09:10→16:38)
[2019-02-02] MEDS: NIFEdipine (XL) 60 MG TAB PO ×2 (11:27→20:46)
[2019-02-02] MEDS: NITROGLYCERIN 0.2 MG/HR PATCH TRANSDERM (11:27)
[2019-02-02] MEDS: MINOXIDIL 2.5 MG TAB PO ×2 (11:28→20:47)
[2019-02-02] MEDS: METOPROLOL 25 MG TAB PO (11:28)
[2019-02-02] MEDS: ARTIFICIAL TEARS 15 ML OPH BOTH EYES ×4 (11:29→20:45)
[2019-02-02] MEDS: FAMOTIDINE 20 MG TAB PO (11:29)
[2019-02-02] MEDS: TAMSULOSIN (SR) 0.4 MG CAP PO (11:29)
[2019-02-02] MEDS ORDERED: NITROGLYCERIN 50 MG/D5W (PMX) 250 ML IV (17:30)
[2019-02-02] MEDS: LABETALOL 200 MG TAB PO ×2 (17:59→20:46)
[2019-02-02] MEDS: HEPARIN 1000 UNITS/ML 10 ML INJ CATHETER (18:30)
[2019-02-02] MEDS: GUAIFENESIN/DM 5ML CUP PO (20:45)
[2019-02-02] MEDS: ATROPINE SULFATE 1% LEFT EYE (21:43)
[2019-02-03] MEDS: METOCLOPRAMIDE 10 MG INJ IV ×4 (00:55→17:00)
[2019-02-03] MEDS: ACCU-CHEK XX (01:19)
[2019-02-03 04:39] LABS: ADD MAN DIFF? NO
[2019-02-03 04:41] LABS: WHITE BLOOD COUNT 3.1 10^3/ul (4.8-10.8)
[2019-02-03 04:41] LABS: BASOPHILS % 0.6 % (0.0-2.0); EOSINOPHILS # 0.6 10^3/ul (0.0-0.5); EOSINOPHILS % 20.3 % (0.0-7.0); HEMATOCRIT 33.8 % (42.0-52.0); HEMOGLOBIN 11.2 g/dl (14.0-18.0); LYMPHOCYTES # 0.7 10^3/ul (0.8-2.9); LYMPHOCYTES % 23.8 % (15.0-51.0); MEAN CORPUSCULAR HEMOGLOBIN 29.9 pg (29.0-33.0); MEAN CORPUSCULAR HGB CONC 33.1 g/dl (32.0-37.0); MEAN CORPUSCULAR VOLUME 90.4 fl (82.0-101.0); MEAN PLATELET VOLUME 10.7 fl (7.4-10.4); MONOCYTE # 0.3 10^3/ul (0.3-0.9); MONOCYTES % 10.9 % (0.0-11.0); NEUTROPHIL # 1.4 10^3/ul (1.6-7.5); NEUTROPHILS % 44.1 % (39.0-77.0); PLATELET COUNT 118 10^3/UL (140-415); RED BLOOD COUNT 3.74 10^6/ul (4.70-6.10); RED CELL DISTRIBUTION WIDTH 13.2 % (11.5-14.5)
[2019-02-03 05:03] LABS: ALANINE AMINOTRANSFERASE 15 IU/L (13-69); ALBUMIN 4.3 g/dl (3.3-4.9); ALBUMIN/GLOBULIN RATIO 1.26; ALKALINE PHOSPHATASE 52 IU/L (42-121); ANION GAP 15 (5-13); ASPARTATE AMINO TRANSFERASE 19 IU/L (15-46); BILIRUBIN,INDIRECT 0.1 mg/dl (0-1.1); BILIRUBIN,TOTAL 0.1 mg/dl (0.2-1.3); BLOOD UREA NITROGEN 42 mg/dl (7-20); CALCIUM 8.6 mg/dl (8.4-10.2); CARBON DIOXIDE 25 mmol/L (21-31); CHLORIDE 95 mmol/L (97-110); CREATININE 7.42 mg/dl (0.61-1.24); Estimated GFR 8 mL/min (>60); GLUCOSE 94 mg/dl (70-220); POTASSIUM 5.9 mmol/L (3.5-5.1); SODIUM 135 mmol/L (135-144); TOTAL PROTEIN 7.7 g/dl (6.1-8.1)
[2019-02-03] MEDS: PIPER-TAZO 2.25 GM (PMX) 50 ML IVPB ×3 (05:56→23:41)
[2019-02-03] MEDS: INSULIN ASPART [NOVOLOG] 3 ML PEN SC ×4 (07:35→21:00)
[2019-02-03] MEDS: SEVELAMER CARBONATE 0.8 GM PKT PO ×3 (09:05→17:48)
[2019-02-03] MEDS: TAMSULOSIN (SR) 0.4 MG CAP PO (09:06)
[2019-02-03] MEDS: ATROPINE SULFATE 1% LEFT EYE ×2 (09:06→21:44)
[2019-02-03] MEDS: ARTIFICIAL TEARS 15 ML OPH BOTH EYES ×4 (09:06→21:43)
[2019-02-03] MEDS: LABETALOL 200 MG TAB PO ×2 (09:07→21:00)
[2019-02-03] MEDS: NITROGLYCERIN 0.2 MG/HR PATCH TRANSDERM (09:07)
[2019-02-03] MEDS: MINOXIDIL 2.5 MG TAB PO ×2 (09:07→21:00)
[2019-02-03] MEDS: FAMOTIDINE 20 MG TAB PO (09:07)
[2019-02-03] MEDS: NIFEdipine (XL) 60 MG TAB PO ×2 (09:08→21:00)
[2019-02-03] MEDS: GUAIFENESIN/DM 5ML CUP PO (12:30)
[2019-02-03] MEDS: NA POLYST SULFON 15 GM/60 ML BTL PO (14:33)
[2019-02-04] MEDS: ACCU-CHEK XX (02:00)
[2019-02-04] MEDS: METOCLOPRAMIDE 10 MG INJ IV ×4 (06:00→17:25)
[2019-02-04] MEDS: PIPER-TAZO 2.25 GM (PMX) 50 ML IVPB ×3 (06:25→21:21)
[2019-02-04 07:06] LABS: ANION GAP 20 (5-13); BLOOD UREA NITROGEN 68 mg/dl (7-20); CALCIUM 7.1 mg/dl (8.4-10.2); CARBON DIOXIDE 21 mmol/L (21-31); CHLORIDE 94 mmol/L (97-110); CREATININE 9.82 mg/dl (0.61-1.24); Estimated GFR 6 mL/min (>60); GLUCOSE 96 mg/dl (70-220); SODIUM 135 mmol/L (135-144)
[2019-02-04 07:17] LABS: POTASSIUM 4.8 mmol/L (3.5-5.1)
[2019-02-04] MEDS: INSULIN ASPART [NOVOLOG] 3 ML PEN SC ×4 (07:54→21:00)
[2019-02-04] MEDS: SEVELAMER CARBONATE 0.8 GM PKT PO ×3 (08:15→17:25)
[2019-02-04] MEDS: MINOXIDIL 2.5 MG TAB PO ×2 (09:34→21:00)
[2019-02-04] MEDS: NIFEdipine (XL) 60 MG TAB PO ×2 (09:34→21:00)
[2019-02-04] MEDS: FAMOTIDINE 20 MG TAB PO (09:35)
[2019-02-04] MEDS: TAMSULOSIN (SR) 0.4 MG CAP PO (09:35)
[2019-02-04] MEDS: LABETALOL 200 MG TAB PO ×2 (09:36→21:00)
[2019-02-04] MEDS: NITROGLYCERIN 0.2 MG/HR PATCH TRANSDERM (09:39)
[2019-02-04] MEDS: ARTIFICIAL TEARS 15 ML OPH BOTH EYES ×4 (09:40→21:22)
[2019-02-04] MEDS: ATROPINE SULFATE 1% LEFT EYE ×2 (09:40→21:22)
[2019-02-04] MEDS: GUAIFENESIN/DM 5ML CUP PO ×2 (12:40→21:39)
[2019-02-05] MEDS: ACCU-CHEK XX (01:41)
[2019-02-05] MEDS: METOCLOPRAMIDE 10 MG INJ IV ×5 (05:26→23:03)
[2019-02-05] MEDS: PIPER-TAZO 2.25 GM (PMX) 50 ML IVPB ×4 (05:50→21:44)
[2019-02-05 06:44] LABS: ANION GAP 21 (5-13); BLOOD UREA NITROGEN 89 mg/dl (7-20); CALCIUM 6.4 mg/dl (8.4-10.2); CARBON DIOXIDE 21 mmol/L (21-31); CHLORIDE 89 mmol/L (97-110); CREATININE 11.36 mg/dl (0.61-1.24); Estimated GFR 5 mL/min (>60); GLUCOSE 95 mg/dl (70-220); POTASSIUM 5.6 mmol/L (3.5-5.1); SODIUM 131 mmol/L (135-144)
[2019-02-05] MEDS: INSULIN ASPART [NOVOLOG] 3 ML PEN SC ×4 (08:00→20:58)
[2019-02-05] MEDS: NA POLYST SULFON 15 GM/60 ML BTL PO (08:51)
[2019-02-05] MEDS: SEVELAMER CARBONATE 0.8 GM PKT PO ×3 (08:52→17:26)
[2019-02-05] MEDS: FAMOTIDINE 20 MG TAB PO (08:53)
[2019-02-05] MEDS: ARTIFICIAL TEARS 15 ML OPH BOTH EYES ×4 (08:53→20:48)
[2019-02-05] MEDS: TAMSULOSIN (SR) 0.4 MG CAP PO (08:53)
[2019-02-05] MEDS: ATROPINE SULFATE 1% LEFT EYE ×2 (08:53→20:48)
[2019-02-05] MEDS: NITROGLYCERIN 0.2 MG/HR PATCH TRANSDERM (08:54)
[2019-02-05] MEDS: LABETALOL 200 MG TAB PO ×2 (08:55→20:47)
[2019-02-05] MEDS: NIFEdipine (XL) 60 MG TAB PO ×2 (08:55→20:46)
[2019-02-05] MEDS: MINOXIDIL 2.5 MG TAB PO ×2 (08:56→20:48)
[2019-02-05] MEDS: GUAIFENESIN/DM 5ML CUP PO (11:49)
[2019-02-05] MEDS: HEPARIN 1000 UNITS/ML 10 ML INJ CATHETER (16:11)
[2019-02-06] MEDS: ACCU-CHEK XX ×2 (01:17→20:14)
[2019-02-06 05:04] LABS: ADD MAN DIFF? NO
[2019-02-06 05:23] LABS: ANION GAP 17 (5-13); BLOOD UREA NITROGEN 46 mg/dl (7-20); CALCIUM 7.4 mg/dl (8.4-10.2); CARBON DIOXIDE 26 mmol/L (21-31); CHLORIDE 96 mmol/L (97-110); CREATININE 8.12 mg/dl (0.61-1.24); Estimated GFR 7 mL/min (>60); GLUCOSE 97 mg/dl (70-220); POTASSIUM 4.6 mmol/L (3.5-5.1); SODIUM 139 mmol/L (135-144)
[2019-02-06 05:24] LABS: ABNORMAL IP MESSAGE 1; BASOPHILS % 0.6 % (0.0-2.0); EOSINOPHILS # 0.7 10^3/ul (0.0-0.5); EOSINOPHILS % 19.1 % (0.0-7.0); HEMATOCRIT 30.2 % (42.0-52.0); HEMOGLOBIN 10.2 g/dl (14.0-18.0); LYMPHOCYTES # 0.6 10^3/ul (0.8-2.9); MEAN CORPUSCULAR HEMOGLOBIN 30.4 pg (29.0-33.0); MEAN CORPUSCULAR HGB CONC 33.8 g/dl (32.0-37.0); MEAN CORPUSCULAR VOLUME 90.1 fl (82.0-101.0); MEAN PLATELET VOLUME 11.3 fl (7.4-10.4); MONOCYTE # 0.4 10^3/ul (0.3-0.9); MONOCYTES % 10.4 % (0.0-11.0); NEUTROPHIL # 1.8 10^3/ul (1.6-7.5); NEUTROPHILS % 51.9 % (39.0-77.0); PLATELET COUNT 99 10^3/UL (140-415); POSITIVE DIFF @See below; RED BLOOD COUNT 3.35 10^6/ul (4.70-6.10); RED CELL DISTRIBUTION WIDTH 12.9 % (11.5-14.5)
[2019-02-06 05:24] LABS: WHITE BLOOD COUNT 3.5 10^3/ul (4.8-10.8)
[2019-02-06] MEDS: METOCLOPRAMIDE 10 MG INJ IV ×4 (05:25→23:08)
[2019-02-06] MEDS: PIPER-TAZO 2.25 GM (PMX) 50 ML IVPB ×3 (05:25→22:29)
[2019-02-06] MEDS: INSULIN ASPART [NOVOLOG] 3 ML PEN SC ×4 (08:00→20:14)
[2019-02-06] MEDS: NITROGLYCERIN 0.2 MG/HR PATCH TRANSDERM (09:24)
[2019-02-06] MEDS: LABETALOL 200 MG TAB PO ×2 (09:25→20:13)
[2019-02-06] MEDS: MINOXIDIL 2.5 MG TAB PO ×2 (09:25→20:12)
[2019-02-06] MEDS: TAMSULOSIN (SR) 0.4 MG CAP PO (09:26)
[2019-02-06] MEDS: SEVELAMER CARBONATE 0.8 GM PKT PO ×3 (09:26→17:29)
[2019-02-06] MEDS: FAMOTIDINE 20 MG TAB PO (09:26)
[2019-02-06] MEDS: NIFEdipine (XL) 60 MG TAB PO ×2 (09:26→20:12)
[2019-02-06] MEDS: ARTIFICIAL TEARS 15 ML OPH BOTH EYES ×4 (09:26→20:15)
[2019-02-06] MEDS: ATROPINE SULFATE 1% LEFT EYE ×2 (09:28→20:18)
[2019-02-06 11:41] LABS: QUANTIFERON(R)-TB GOLD NEGATIVE (NEGATIVE); TB2-NIL 0.01 IU/mL
[2019-02-07] MEDS: PIPER-TAZO 2.25 GM (PMX) 50 ML IVPB ×3 (06:15→21:50)
[2019-02-07] MEDS: METOCLOPRAMIDE 10 MG INJ IV ×4 (06:17→23:45)
[2019-02-07] MEDS: INSULIN ASPART [NOVOLOG] 3 ML PEN SC ×4 (07:51→22:40)
[2019-02-07] MEDS: ARTIFICIAL TEARS 15 ML OPH BOTH EYES ×4 (08:36→20:24)
[2019-02-07] MEDS: SEVELAMER CARBONATE 0.8 GM PKT PO ×3 (08:36→17:24)
[2019-02-07] MEDS: TAMSULOSIN (SR) 0.4 MG CAP PO (08:38)
[2019-02-07] MEDS: FAMOTIDINE 20 MG TAB PO (08:38)
[2019-02-07] MEDS: NITROGLYCERIN 0.2 MG/HR PATCH TRANSDERM (08:38)
[2019-02-07] MEDS: MINOXIDIL 2.5 MG TAB PO ×2 (08:39→20:27)
[2019-02-07] MEDS: ATROPINE SULFATE 1% LEFT EYE ×2 (08:41→20:28)
[2019-02-07] MEDS: LABETALOL 200 MG TAB PO ×2 (08:43→20:25)
[2019-02-07] MEDS: NIFEdipine (XL) 60 MG TAB PO ×2 (08:43→20:26)
[2019-02-07] MEDS: HEPARIN 1000 UNITS/ML 10 ML INJ CATHETER (18:22)
[2019-02-07] MEDS: ACETAMINOPHEN 325 MG TAB PO (20:26)
[2019-02-08] MEDS: ACCU-CHEK XX (02:00)
[2019-02-08] MEDS: PIPER-TAZO 2.25 GM (PMX) 50 ML IVPB ×3 (05:50→21:29)
[2019-02-08] MEDS: METOCLOPRAMIDE 10 MG INJ IV ×4 (05:51→23:50)
[2019-02-08 06:10] LABS: ADD MAN DIFF? NO
[2019-02-08 06:20] LABS: ABNORMAL IP MESSAGE 1; BASOPHILS % 0.3 % (0.0-2.0); EOSINOPHILS # 0.7 10^3/ul (0.0-0.5); EOSINOPHILS % 19.9 % (0.0-7.0); HEMOGLOBIN 10.9 g/dl (14.0-18.0); LYMPHOCYTES # 0.7 10^3/ul (0.8-2.9); LYMPHOCYTES % 20.2 % (15.0-51.0); MEAN CORPUSCULAR HEMOGLOBIN 29.5 pg (29.0-33.0); MEAN CORPUSCULAR VOLUME 89.2 fl (82.0-101.0); MEAN PLATELET VOLUME 11.4 fl (7.4-10.4); MONOCYTE # 0.3 10^3/ul (0.3-0.9); MONOCYTES % 9.8 % (0.0-11.0); NEUTROPHIL # 1.7 10^3/ul (1.6-7.5); NEUTROPHILS % 49.8 % (39.0-77.0); PLATELET COUNT 94 10^3/UL (140-415); POSITIVE DIFF @See below; RED CELL DISTRIBUTION WIDTH 12.9 % (11.5-14.5)
[2019-02-08 06:20] LABS: WHITE BLOOD COUNT 3.5 10^3/ul (4.8-10.8)
[2019-02-08 06:46] LABS: ANION GAP 17 (5-13); BLOOD UREA NITROGEN 45 mg/dl (7-20); CALCIUM 8.1 mg/dl (8.4-10.2); CARBON DIOXIDE 26 mmol/L (21-31); CHLORIDE 95 mmol/L (97-110); CREATININE 7.98 mg/dl (0.61-1.24); Estimated GFR 7 mL/min (>60); GLUCOSE 99 mg/dl (70-220); POTASSIUM 5.1 mmol/L (3.5-5.1); SODIUM 138 mmol/L (135-144)
[2019-02-08] MEDS: INSULIN ASPART [NOVOLOG] 3 ML PEN SC ×4 (07:26→21:00)
[2019-02-08] MEDS: ARTIFICIAL TEARS 15 ML OPH BOTH EYES ×4 (08:09→21:19)
[2019-02-08] MEDS: NITROGLYCERIN 0.2 MG/HR PATCH TRANSDERM (08:09)
[2019-02-08] MEDS: FAMOTIDINE 20 MG TAB PO (08:10)
[2019-02-08] MEDS: NIFEdipine (XL) 60 MG TAB PO ×2 (08:10→21:20)
[2019-02-08] MEDS: SEVELAMER CARBONATE 0.8 GM PKT PO ×3 (08:10→18:01)
[2019-02-08] MEDS: MINOXIDIL 2.5 MG TAB PO ×2 (08:11→21:19)
[2019-02-08] MEDS: LABETALOL 200 MG TAB PO ×3 (08:11→21:20)
[2019-02-08] MEDS: ATROPINE SULFATE 1% LEFT EYE ×2 (08:12→21:19)
[2019-02-08] MEDS: TAMSULOSIN (SR) 0.4 MG CAP PO (08:13)
[2019-02-09] MEDS: ACCU-CHEK XX (02:00)
[2019-02-09] MEDS: METOCLOPRAMIDE 10 MG INJ IV ×4 (05:54→23:29)
[2019-02-09] MEDS: PIPER-TAZO 2.25 GM (PMX) 50 ML IVPB (05:54)
[2019-02-09] MEDS: INSULIN ASPART [NOVOLOG] 3 ML PEN SC ×4 (08:00→22:10)
[2019-02-09] MEDS: SEVELAMER CARBONATE 0.8 GM PKT PO ×3 (08:53→17:37)
[2019-02-09] MEDS: ATROPINE SULFATE 1% LEFT EYE ×2 (08:54→22:16)
[2019-02-09] MEDS: ARTIFICIAL TEARS 15 ML OPH BOTH EYES ×4 (08:55→22:16)
[2019-02-09] MEDS: MINOXIDIL 2.5 MG TAB PO ×2 (08:57→22:15)
[2019-02-09] MEDS: FAMOTIDINE 20 MG TAB PO (08:57)
[2019-02-09] MEDS: TAMSULOSIN (SR) 0.4 MG CAP PO (08:57)
[2019-02-09] MEDS: LABETALOL 200 MG TAB PO ×3 (08:58→22:15)
[2019-02-09] MEDS: NIFEdipine (XL) 60 MG TAB PO ×2 (08:59→22:14)
[2019-02-09] MEDS: NITROGLYCERIN 0.2 MG/HR PATCH TRANSDERM (09:01)
[2019-02-09] MEDS: LACTULOSE 30ML CUP PO (14:00)
[2019-02-09] MEDS: HEPARIN 1000 UNITS/ML 10 ML INJ CATHETER (21:36)
[2019-02-10] MEDS: ACCU-CHEK XX (02:00)
[2019-02-10] MEDS: METOCLOPRAMIDE 10 MG INJ IV ×4 (05:42→23:10)
[2019-02-10] MEDS: INSULIN ASPART [NOVOLOG] 3 ML PEN SC ×4 (08:00→21:00)
[2019-02-10] MEDS: LACTULOSE 30ML CUP PO (08:41)
[2019-02-10] MEDS: ARTIFICIAL TEARS 15 ML OPH BOTH EYES ×4 (08:41→21:26)
[2019-02-10] MEDS: ATROPINE SULFATE 1% LEFT EYE ×2 (08:41→21:27)
[2019-02-10] MEDS: SEVELAMER CARBONATE 0.8 GM PKT PO ×3 (08:41→17:16)
[2019-02-10] MEDS: LABETALOL 200 MG TAB PO ×3 (08:42→23:10)
[2019-02-10] MEDS: TAMSULOSIN (SR) 0.4 MG CAP PO (08:42)
[2019-02-10] MEDS: NIFEdipine (XL) 60 MG TAB PO ×2 (08:42→21:26)
[2019-02-10] MEDS: FAMOTIDINE 20 MG TAB PO (08:42)
[2019-02-10] MEDS: MINOXIDIL 2.5 MG TAB PO ×2 (08:43→21:25)
[2019-02-10] MEDS: NITROGLYCERIN 0.2 MG/HR PATCH TRANSDERM (08:43)
[2019-02-11] MEDS: ACCU-CHEK XX (02:00)
[2019-02-11] MEDS: METOCLOPRAMIDE 10 MG INJ IV ×3 (06:10→17:18)
[2019-02-11 07:37] LABS: ALANINE AMINOTRANSFERASE 15 IU/L (13-69); ALBUMIN 4.2 g/dl (3.3-4.9); ALBUMIN/GLOBULIN RATIO 1.27; ALKALINE PHOSPHATASE 54 IU/L (42-121); ANION GAP 15 (5-13); ASPARTATE AMINO TRANSFERASE 17 IU/L (15-46); BILIRUBIN,INDIRECT 0.1 mg/dl (0-1.1); BILIRUBIN,TOTAL 0.1 mg/dl (0.2-1.3); BLOOD UREA NITROGEN 67 mg/dl (7-20); CALCIUM 7.8 mg/dl (8.4-10.2); CARBON DIOXIDE 24 mmol/L (21-31); CHLORIDE 98 mmol/L (97-110); CREATININE 9.67 mg/dl (0.61-1.24); Estimated GFR 6 mL/min (>60); GLUCOSE 84 mg/dl (70-220); POTASSIUM 5.8 mmol/L (3.5-5.1); SODIUM 137 mmol/L (135-144); TOTAL PROTEIN 7.5 g/dl (6.1-8.1)
[2019-02-11] MEDS: INSULIN ASPART [NOVOLOG] 3 ML PEN SC ×4 (07:48→20:20)
[2019-02-11] MEDS: SEVELAMER CARBONATE 0.8 GM PKT PO ×3 (07:48→17:18)
[2019-02-11] MEDS: ATROPINE SULFATE 1% LEFT EYE ×2 (08:39→20:17)
[2019-02-11] MEDS: ARTIFICIAL TEARS 15 ML OPH BOTH EYES ×4 (08:40→20:18)
[2019-02-11] MEDS: TAMSULOSIN (SR) 0.4 MG CAP PO (08:40)
[2019-02-11] MEDS: LACTULOSE 30ML CUP PO (08:40)
[2019-02-11] MEDS: LABETALOL 200 MG TAB PO ×3 (08:41→20:14)
[2019-02-11] MEDS: NIFEdipine (XL) 60 MG TAB PO ×2 (08:41→20:15)
[2019-02-11] MEDS: NITROGLYCERIN 0.2 MG/HR PATCH TRANSDERM (08:41)
[2019-02-11] MEDS: FAMOTIDINE 20 MG TAB PO (08:41)
[2019-02-11] MEDS: MINOXIDIL 2.5 MG TAB PO ×2 (08:42→20:16)
[2019-02-12] MEDS: METOCLOPRAMIDE 10 MG INJ IV ×4 (01:31→17:12)
[2019-02-12] MEDS: ACCU-CHEK XX (02:00)
[2019-02-12] MEDS: INSULIN ASPART [NOVOLOG] 3 ML PEN SC ×4 (07:41→21:14)
[2019-02-12] MEDS: NITROGLYCERIN 0.2 MG/HR PATCH TRANSDERM (08:37)
[2019-02-12] MEDS: LACTULOSE 30ML CUP PO (08:39)
[2019-02-12] MEDS: SEVELAMER CARBONATE 0.8 GM PKT PO ×3 (08:39→17:12)
[2019-02-12] MEDS: FAMOTIDINE 20 MG TAB PO (08:39)
[2019-02-12] MEDS: TAMSULOSIN (SR) 0.4 MG CAP PO (08:39)
[2019-02-12] MEDS: LABETALOL 200 MG TAB PO ×3 (08:40→20:59)
[2019-02-12] MEDS: NIFEdipine (XL) 60 MG TAB PO ×2 (08:40→20:59)
[2019-02-12] MEDS: MINOXIDIL 2.5 MG TAB PO ×2 (08:41→20:58)
[2019-02-12] MEDS: ATROPINE SULFATE 1% LEFT EYE ×2 (08:41→20:57)
[2019-02-12] MEDS: ARTIFICIAL TEARS 15 ML OPH BOTH EYES ×4 (08:41→20:57)
[2019-02-12] MEDS: HEPARIN 1000 UNITS/ML 10 ML INJ CATHETER (19:41)
== END 2019-02-12 22:10 | disposition home or self-care (01) | DRG 640 ==
LOC: 6WM 02-03 15:27 → E/R 04:29 → 6WM 02-03 18:29 → ICU 06:33
PROVIDERS: Internal Medicine
PROC: 5A1D70Z Performance of Urinary Filtration, Intermittent, Less than 6 Hours Per Day (ICD-10-PCS; principal; 2019-01-29)
DX: E87.5 Hyperkalemia (principal); N18.6 End stage renal disease; I16.1 Hypertensive emergency; I12.0 Hypertensive chronic kidney disease with stage 5 chronic kidney disease or end stage renal disease; D61.818 Other pancytopenia; K81.0 Acute cholecystitis; I25.10 Atherosclerotic heart disease of native coronary artery without angina pectoris; E11.9 Type 2 diabetes mellitus without complications; H54.8 Legal blindness, as defined in USA; R91.8 Other nonspecific abnormal finding of lung field; E87.70 Fluid overload, unspecified; E87.2 Acidosis; Z95.1 Presence of aortocoronary bypass graft; Z99.2 Dependence on renal dialysis; Z22.322 Carrier or suspected carrier of Methicillin resistant Staphylococcus aureus
CPT/HCPCS: 36415; 71045; 74176; 76705; 78226; 80048; 80053; 82962; 83690; 84132; 84484; 85025; 86480; 86635; 86706; 87081; 87340; 90935; 93005; 94664; 96374; 96375; 99291-25